=== PATIENT | male | born 1955 | race Caucasian/White ===

== ENCOUNTER → 2018-10-25 | Outpatient (CLI) | payer OTHER ==
--- NOTE | 2018-10-26 11:53 | XCELERA REPORT ---
[address] [address] Lower Extremity Arterial Evaluation Name: DAVIE HOLLEY Age: 63 yrs Gender: Male : 1955 Patient Status: Outpatient Patient Location: [facility] Study Date: 10/25/2018 10:49 AM Procedure: A color flow and duplex scan of the lower extremity arteries was performed bilaterally with velocity and waveform anaylsis. Reason For Study: CLAUDATION OF LOWER EXTERMITY Ordering Physician: AARON GALINDO Performed By: Abdoulaye Jones Measurements and Calculations Right Left [employer] PSV 81.1 98.5 cm/sec Prox PFA PSV -55.9 78.3 cm/sec Prox SFA PSV 60.4 102.7 cm/sec Mid SFA PSV -83.0 -74.8 cm/sec Dist SFA PSV -73.3 -63.8 cm/sec Prox Pop A PSV 47.6 41.9 cm/sec Dist STAR PSV 67.6 57.5 cm/sec Dist [employer] DEVELOPER PSV 27.8 38.5 cm/sec Josse Pedis PSV 63.3 71.9 cm/sec Right Side Arterial Evaluation Normal velocity and triphasic waveforms noted from the Common Femoral artery to the infrageniculate vessels . Ankle Brachial index not obtained, previously done elsewhere. Left Side Arterial Evaluation Normal velocity and triphasic waveforms noted from the Common Femoral artery to the infrageniculate vessels . Ankle Brachial index not obtained, previously done elsewhere. Interpretation Summary No hemodynamically significant lesions in the bilateral lower extremities, on duplex imaging, at rest. : AARON GALINDO > Mani Land
== END ==
LOC: SP 10:17
PROVIDERS: ATTEND Physician Assistant
DX: I10 Essential (primary) hypertension (principal); E78.5 Hyperlipidemia, unspecified; E11.9 Type 2 diabetes mellitus without complications; I73.9 Peripheral vascular disease, unspecified
CPT/HCPCS: 93925

== ENCOUNTER → 2018-11-07 | Outpatient (CLI) | payer OTHER ==
[2018-11-07 14:31] LABS: ANION GAP 7 (5-19); BLOOD UREA NITROGEN 19 mg/dL (7-20); CARBON DIOXIDE 27 mmol/L (22-30); CHLORIDE 104 mmol/L (98-107); POTASSIUM 4.7 mmol/L (3.6-5.0); SODIUM 138.4 mmol/L (137-145)
== END ==
LOC: OD 13:15
PROVIDERS: ATTEND Specialist
DX: R01.1 Cardiac murmur, unspecified (principal); R06.00 Dyspnea, unspecified; I10 Essential (primary) hypertension; E78.5 Hyperlipidemia, unspecified; E11.9 Type 2 diabetes mellitus without complications; E66.9 Obesity, unspecified; R60.9 Edema, unspecified; R94.31 Abnormal electrocardiogram [ECG] [EKG]; Z79.899 Other long term (current) drug therapy
CPT/HCPCS: 36415; 80051; 82565; 83735; 84520